=== PATIENT | male | born 2005 | race Caucasian/White ===

== ENCOUNTER 2025-02-06 22:24 | Emergency (ER) | payer OTHER, SELFPAY ==
[2025-02-06] MEDS ORDERED: Boostrix 0.5 ML (Tdap) VIAL (>/=7 yrs of age) ONE ×2 (22:32→22:33)
== END 2025-02-06 23:24 | disposition home or self-care (01) ==
LOC: ERS 22:24
DX: R55 Syncope and collapse (principal); S01.81XA Laceration without foreign body of other part of head, initial encounter; F17.200 Nicotine dependence, unspecified, uncomplicated; Z23 Encounter for immunization; W01.10XA Fall on same level from slipping, tripping and stumbling with subsequent striking against unspecified object, initial encounter
CPT/HCPCS: 12011; 90471; 90715